=== PATIENT | female | born 1940 | race African-American/Black ===

== ENCOUNTER 2017-12-24 17:50 | Emergency (ER) | payer MEDICARE, BC ==
[~2017-12-24] VITALS: Ht 157.5 cm; Wt 77.0 kg
[2017-12-24 18:16] VITALS: BP 181/77
[2017-12-24 19:35] LABS: BASOPHILS % 1.3 % (0.0-2.0); EOSINOPHILS % 6.6 % (0.0-5.0); HEMOGLOBIN. 9.9 g/dL (12.0-16.0); LYMPHOCYTES % 28.8 % (20.0-50.0); MEAN CORPUSCULAR VOLUME 78.7 fL (81.0-99.0); MEAN PLATELET VOLUME 7.6 fl (7.4-10.4); MONOCYTES % 11.7 % (2.0-8.0); NEUTROPHILS % 51.6 % (40.0-76.0); PLATELET 389 x1000/uL (130-400); RED BLOOD CELL COUNT 3.81 mill/uL (4.2-5.4); RED CELL DISTRIBUTION WIDTH 18.1 % (11.6-14.6)
[2017-12-24 19:38] LABS: CHLORIDE 104 mEq/L (98-107)
== END 2017-12-24 20:00 | disposition home or self-care (01) ==
LOC: ER 18:32
DX: E87.5 Hyperkalemia (principal); J45.909 Unspecified asthma, uncomplicated; I10 Essential (primary) hypertension; E78.00 Pure hypercholesterolemia, unspecified; E11.9 Type 2 diabetes mellitus without complications; D64.9 Anemia, unspecified; E05.90 Thyrotoxicosis, unspecified without thyrotoxic crisis or storm; Z85.42 Personal history of malignant neoplasm of other parts of uterus; Z88.6 Allergy status to analgesic agent; Z98.890 Other specified postprocedural states
CPT/HCPCS: 36415; 80053; 85025; 93005; 99285

== ENCOUNTER 2023-07-01 13:59 | Emergency (ER) | payer MEDICARE, BC ==
[~2023-07-01] VITALS: Ht 157.5 cm; Wt 69.9 kg
[2023-07-01 14:07] VITALS: BP 154/78; PULSE 98; RESP 16; TEMP 98.5; O2SAT 98
[2023-07-01] MEDS ORDERED: ACET-2708 MT (17:20)
[2023-07-01] MEDS ORDERED: ACETAMINOPHEN 325MG TABLET PO ONE (17:30)
== END 2023-07-01 18:14 | disposition home or self-care (01) ==
LOC: ER 13:59
DX: M25.511 Pain in right shoulder (principal); J45.909 Unspecified asthma, uncomplicated; E11.9 Type 2 diabetes mellitus without complications; E78.00 Pure hypercholesterolemia, unspecified; I10 Essential (primary) hypertension; E05.90 Thyrotoxicosis, unspecified without thyrotoxic crisis or storm; Z85.9 Personal history of malignant neoplasm, unspecified; Z88.6 Allergy status to analgesic agent; Z98.890 Other specified postprocedural states
CPT/HCPCS: 73030; 99283